=== PATIENT | female | born 2000 | race Caucasian/White ===

== ENCOUNTER 2025-08-12 04:55 | Emergency (ER) | payer BC, SELFPAY ==
[2025-08-12 04:59] VITALS: BP 114/84
[2025-08-12 05:29] LABS: Hematocrit 37.3 % (37.0-47.0); Hemoglobin 12.8 g/dL (12.0-16.0); Mean Corp Hgb Conc. 34.3 g/dL (33.0-37.0); Mean Corpuscular Volume 83.4 fL (81.0-99.0); Nucleated Red Blood Cells % 0 %; Platelet Count 227 10^3/uL (130-400); Red Cell Dist. Width 12.2 % (11.5-14.5)
[2025-08-12 05:32] LABS: INR 1.01; PT 13.6 Sec (11.4-14.6)
[2025-08-12 05:33] LABS: APTT 26.2 Sec (23.4-35.0)
[2025-08-12 05:34] LABS: HCG, Serum Qualitative Screen Negative
[2025-08-12 05:47] LABS: ALT (SGPT) 19 U/L (0-35); AST (SGOT) 23 U/L (14-36); Albumin 4.5 g/dl (3.5-5.0); Alkaline Phosphatase 58 U/L (38-126); Blood Urea Nitrogen 9 mg/dl (7-17); Calcium 9.6 mg/dl (8.4-10.2); Carbon Dioxide 25 mmol/L (22-30); Chloride 105 mmol/L (98-107); Glucose 118 mg/dl (70-99); Potassium 4.0 mmol/L (3.5-5.1); Sodium 137 mmol/L (135-145); Total Protein 7.0 g/dl (6.3-8.2); eGFR > 60.00
[2025-08-12 06:22] VITALS: BMI 23.2
[2025-08-12] MEDS: NSS 1000 IV (06:22)
[2025-08-12] MEDS: OMNIPAQUE 50 ML PO (06:22)
[2025-08-12 06:26] VITALS: BP 118/79
[2025-08-12 06:27] VITALS: BP 118/79
[2025-08-12 06:46] LABS: Urine Character Slightly Cloudy (Clear)
[2025-08-12 07:00] VITALS: BP 103/69
[2025-08-12 07:27] LABS: Urine Squamous Cell >30 /LPF (Few); Urine Urothelial Cell 0-2 /LPF (FEW)
[2025-08-12 07:28] LABS: Urine Red Blood Cell 0-2 /HPF (0-2); Urine White Cell 0-2 /HPF (0-5)
--- NOTE | 2025-08-12 08:22 | ED.GENMED ---
History of Present Illness
General
Chief Complaint: Rectal Bleeding
Source: patient
Exam Limitations: none
Time Seen by Provider: 08/12/25 07:57
History of Present Illness
History of Present Illness:
24yoF with a history of lactose intolerance presenting with her father for evaluation of abdominal pain. Symptoms began around 5 PM last night. She reports pain throughout her lower abdomen with associated diarrhea. She noticed a very small
amount of blood initially but since 11 PM last night, the stool is now all bloody. She reports bright red blood per rectum. She denies any associated fevers, chills, vomiting, dysuria. She ate an German hoagie just before her symptoms began and
had a breakfast sandwich from [employer] yesterday morning. She denies any recent travel or sick contacts. No previous abdominal surgeries. She has seen gastroenterology in the past due to 'stomach issues' and was told to increase her fiber intake.
LMP was 2 weeks ago.
Phy Exam
General Physical Exam
General Presentation: well appearing and no apparent distress
General Skin: warm and dry
General Habitus: normal
General Mental: alert
ENT Exam
ENT Exam: normocephalic
Pulmonary Exam
Pulmonary Exam: no respiratory distress
Gastrointestinal Exam
Gastrointestinal Exam: soft, non distended and other (+Tenderness in suprapubic and LLQ regions. Abdomen soft, non-distended. No rebound or guarding.)
Stool: other (Small amount of yellow colored mucous obtained on digital rectal exam with small amount of blood noted.)
Neurological Exam
Neurological Exam: alert
Rosa Coma Scale
Eye Opening: Spontaneous
Verbal Response: Oriented
Motor Response: Obeys Commands
GCS Total Score: 15
Skin Exam
Skin Exam: normal color and warm/dry
Psychiatric Exam
Psychiatric Exam: normal mood/affect
Course
Orders/Labs/Results
Orders:
Orders
08/12/25 04:56
Test Result ONCE
08/12/25 05:10
Type+Screen Urgent
Complete Blood Count/With Diff Urgent
Comprehensive Metabolic Panel Urgent
HCG, Serum Qualitative Screen Urgent
Comment: Notify provider if positive test present
PTT Urgent
Prothrombin Time Urgent
08/12/25 06:16
Iohexol [Omnipaque] 50 ml .ROUTE .[facility]
08/12/25 06:19
0.9% Sodium Chloride 1000 ml [Nss] 1,000 ml IV BOLUS
Iohexol [Omnipaque] See Protocol PO NOW STA
08/12/25 06:21
Urinalysis Reflex To Culture Urgent
Date Specimen was Collected: 08/12/25
Time Specimen was Collected: 06:19
Urine Microscopic Reflex Cult Urgent
08/12/25 08:00
STOOL [C difficile Antigen & Toxins] Urgent
KATHRYN Source: Feces/Stool
Specimen Description:
Date Specimen was Collected: 08/12/25
Time Specimen was Collected: 07:57
Stool Culture Urgent
KATHRYN Source: Feces/Stool
Specimen Description:
Date Specimen was Collected: 08/12/25
Time Specimen was Collected: 07:57
08/12/25 08:21
CT Abd/pel W Iv And Oral Contr Urgent
Comment:
Reason For Exam: lower abd pain, bloody stool
Abnormal Lab Results
08/12/25 08/12/25
05:10 06:21
WBC 12.2 H 10^3/uL
(4.8-10.8)
MPV 10.6 H fL
(7.4-10.4)
Absolute Neuts (auto) 9.8 H 10^3/uL
(1.4-6.5)
Absolute Monos (auto) 0.8 H 10^3/uL
(0.1-0.6)
Neutrophils % 80.1 H %
(42.2-75.2)
Lymphocytes % 11.8 L %
(20.5-51.1)
Glucose 118 H mg/dl
(70-99)
Urine Ketones 2+ A
(Negative)
Urine Bacteria (Reflex) Few A
(Negative)
Urine Albumin (Reflex) 1+ A
(Neg - Trace)
08/12/25 05:10
08/12/25 05:10
Vital Signs
Initial and Last Documented VS:
Initial Vital Signs
Temp Pulse Resp BP Pulse Ox
97.9 F 90 16 114/84 100
08/12/25 04:59 08/12/25 04:59 08/12/25 04:59 08/12/25 04:59 08/12/25 04:59
Last Documented Vital Signs
Temp Pulse Resp BP Pulse Ox
97.9 F 67 14 103/69 100
08/12/25 04:59 08/12/25 08:45 08/12/25 08:45 08/12/25 07:00 08/12/25 08:24
MDM/Problems Addressed
Differential Diagnosis Includes:
24yoF here with rectal bleeding, diarrhea, and lower abd pain that began last night. VSS. She is well appearing in no distress. Small amount of yellow mucus obtained on digital rectal exam with a small amount of blood. No signs of peritonitis on
abdominal exam. Differential diagnosis includes but is not limited to: Colitis, hemorrhoidal bleeding, infectious diarrhea, less likely diverticulitis given age
Initial ED plan: Workup initiated by nursing staff prior to exam. Hemoglobin is stable at 12.8. White count is mildly elevated at 12.2. Remainder of labs unremarkable. Will obtain CT abdomen with IV/p.o. contrast.
*Pulse Oximetry
SaO2: 100
Oxygen Mode of Delivery: Room air
Patient hypoxic: no
*Critical Care Note
Total Time (30-74mins, 75-104mins- exclusive of procedures): Not Applicable
Update Note
Update Note:
CT shows findings of colitis involving the descending colon. This most likely represents infectious colitis per radiology report. Cannot exclude underlying IBD. Stool sample obtained. Per nursing staff, stool was brown with blood mixed in.
Stool testing including C. difficile and stool culture sent. No indication for hospitalization. Given leukocytosis, will cover with antibiotics. She was started on a course of Augmentin. Patient was advised to follow-up with gastroenterology.
ED return precautions reviewed including fevers and severe pain. Parents and patient in agreement with plan and she was discharged in stable condition.
ED Attending Note
-
Portions of this chart may have been created with voice recognition software.� Occasional wrong word or��sound alike� substitutions may have occurred due to the inherent limitations of voice recognition software.
Discharge Plan
Departure
Patient Disposition: Home (Routine Discharge)
Date of Disposition: 08/12/25
Time of Disposition: 10:28
Patient with high blood pressure during this ER visit?: No
Discharge Problem:
Colitis
Instructions: Colitis (DC)
Prescriptions:
New
amoxicillin-pot clavulanate 875-125 mg tablet
1 tab PO BID Qty: 14 0RF
fluconazole 150 mg tablet
150 mg PO ONCE Qty: 1 0RF
No Action
Bcp Patch
1 patch topical WEEKLY
Patient Comments:
pt does not know the name of it
Referrals:
Rubin Schwartz DO [Family Provider, Family Practice]
Swathi Larkin MD [Active, Gastroenterology]
Activity Restrictions/Additional Instructions:
Take antibiotics as prescribed. Drink plenty of fluids and eat a bland diet (bananas, rice, applesauce, toast).
Please call tomorrow to schedule a follow-up appointment with gastroenterology. Return to the ER with any new or worsening symptoms including fevers, dizziness, or passing out.
Interventions
Interventions:
*Risk Screen - Suicide Last Done: 08/12/25 04:59
*General Assessment Last Done: 08/12/25 04:59
*Neglect/Abuse Screening Last Done: 08/12/25 04:59
*ED COVID-19 Vaccine History Last Done: 08/12/25 06:23
*Nursing Disposition Last Done: 08/12/25 10:46
IO-Hthcji-Hzjcgpuorg Assessment Last Done: 08/12/25 06:00
ED- Cardiac Assessment Last Done: 08/12/25 06:00
ED- Pulmonary Assessment Last Done: 08/12/25 06:00
Discharge Date and Time
Discharge Date/Time: 08/12/25 10:46
Print Language: SAO TOMEAN
== END 2025-08-12 10:46 | disposition home or self-care (01) ==
LOC: EMR 04:55
PROVIDERS: Student in an Organized Health Care Education/Training Program; EMERGENCY PHYSICIAN Emergency Medicine; FAMILY PHYSICIAN Family Medicine
DX: K52.9 Noninfective gastroenteritis and colitis, unspecified (principal); D72.829 Elevated white blood cell count, unspecified; E73.9 Lactose intolerance, unspecified
CPT/HCPCS: 99284; 96360; 74177; 80053; 81003; 81015; 84703; 85025; 85610; 85730; 86850; 86900; 86901; 87045; 87046; 87324; 87427; 87449; Q9967